=== PATIENT | female | born 1975 | race Caucasian/White ===

== ENCOUNTER 2018-06-09 05:19 | Day surgery (SDC) | payer OTHER, SELFPAY ==
[2018-06-09] VITALS (9 sets, daily range): BP systolic 91–124; BP diastolic 61–74; PULSE 61–68; RESP 14–16; TEMP 35.8–37.1; O2SAT 94–100; BMI 36.3
[2018-06-09 05:45] LABS: Internal QC Validated? YES +Cl - CLEAR BKGD; Pregnancy, Urine Negative Negative
--- NOTE | 2018-06-09 08:15 | HYST_PTH ---
PATIENT: VINOD PINK [place] [facility] [id number] AGE/SX: 42/F ROOM: RE06/09/[address]: Dr. Cherelle Mcfarland MD : 1975 BED: DIS: 06/09/2018 SPEC #: [id number] RECD: 06/09/18 10:51 STATUS: SAUL MERCER #: [id number] EDU: 06/09/18 08:[address]: Cherelle Mcfarland DEPT: SURGICAL PATHOLOGY RECD BY: Rony Gaines ENTERED: 06/09/18 12:09 SP TYPE: HYSTERECT OTHR DR: Dr. Ravi Mcclellan MD Tissues: Uterus, NOS Procedures: Surgery Specimen Level V HEADER OPERATION: Hysterectomy, laparoscopic total, salpingectomy, cystoscopy PRE-OP DIAGNOSIS: Menorrhagia, uterine fibroids, chronic pelvic pain TISSUE SUBMITTED: Uterus, bilateral fallopian tubes MICROSCOPIC DIAGNOSIS Uterus, bilateral fallopian tubes, hysterectomy and bilateral salpingectomy: Cervix ? chronic cystic cervicitis. Endometrium ? weakly secretory endometrium. Endometrial polyp ? benign endometrial polyp with secretory changes. Myometrium ? intramural leiomyoma (7 cm in greatest dimension). Bilateral fallopian tubes - no pathologic diagnosis. SJ:glenn 06/10/18 MICROSCOPIC DESCRIPTION Slides are reviewed. GROSS DESCRIPTION Received in fixative is one container labeled with the patient's name and designated uterus, bilateral fallopian tubes. The specimen consists of a hysterectomy specimen consisting of uterus with cervix and detached bilateral fallopian tubes. The uterus with cervix weighs 222 gm and measures 12 x 8 x 7.5 cm. The serosal surface is godinez, glistening. A Filshie clip is noted at the right cornu which appears intact. A second Filshie clip is also present in the container which appears intact. The ectocervical mucosa is unremarkable. The external os is slit-like in contour. The endocervical canal measures 3.5 cm in length and the endocervical mucosa is unremarkable. Sections of the cervix reveal a few cysts filled with mucoid material. The endometrial cavity is compressed to one side and measures 4 cm in length and up to 3.5 cm in width. An endometrial polyp is noted at the right cornu measuring 1.5 x 0.5 x 0.2 cm. The myometrial wall underneath the polyp is not indurated. The rest of the endometrium is godinez, smooth and glistening without any additional mass lesion and measures 0.1 cm in thickness. Sections of the uterine wall reveal a large nodular mass at the fundus measuring 7 cm in greatest dimension. The uninvolved uterine wall measures up to 1 cm in thickness. Sections of this mass reveals godinez whorled cut surfaces without areas of hemorrhage, necrosis or cystic degeneration. The fallopian tubes are not identified as right or left. One of the fallopian tubes measure 6 cm in length and up to 0.5 cm in diameter. The fimbrial end is identified. The second fallopian tube measures 4.5 cm in length and 0.5 cm in diameter. The fimbrial end is identified. Sections reveal unremarkable cut surfaces. Csr sections are submitted in 11 cassettes as follows: 1 - anterior cervix, 2 - posterior cervix, 3 & 4 - anterior uterine wall, 5 & 6 - posterior uterine wall, 7 ? endometrial polyp with underlying uterine wall, entirely submitted, 8 & 9 ? nodular mass, 10 & 11 ? bilateral fallopian tubes with each cassette containing one fallopian tube. / RODRIGUE:glenn 06/09/18 TC:1 CPT: 12368
[2018-06-09] MEDS: Lubricating Jelly 60 GM Tube 30 GM TOPICAL (08:24)
[2018-06-09] MEDS: Bupivacaine Mpf 0.5% 30 ML VIAL OPERA.SITE (08:29)
--- NOTE | 2018-06-09 09:53 | OP.PCM_ITS ---
Report of Operation Date of Procedure: 06/09/18 Pre-Operative Diagnosis: menorrhagia, uterine fibroids, chronic pelvic pain Post-Operative Diagnosis: same Surgery/Procedure Performed:: TLH, bilateral salpingectomy and cystoscopy Description of Surgical Findings:: enlarged uterus w/ fibroid, absent left ovary, both Fallopian tubes with evidence of tubal, otherwise normal pelvis, normal liver, bladder grossly normal electronic assembler: Emily Nicole Type of Anesthesia:: General Anesthesiologist: Yarely Iraheta Special Medications: none Specimen's removed: uterus, bilateral tubes Drains: lindsay Estimated Blood Loss (mL): 150cc Fluids Replaced: 1200ccLR Description of Procedure: The patient was taken to the operating room where she was prepped and draped in the dorsal lithotomy position. Her arms were tucked to the side and padded and her legs were placed in the yellowfin stirrups. Care was taken to ensure that she was placed in a neurologically safe and neutral position. A weighted speculum was placed in the vagina and the anterior lip of the cervix was grasped with a single-tooth tenaculum. The cervix sounded to 9 centimeters. 2- 0 Vicryl sutures were secured to the cervix at 3 and 9:00. The medium V CARE placed into the cervix and the balloon inflated. The stay sutures were placed through the cup and secured down to the cervix. Once the V-Care was secured to the cervix the Lindsay catheter was placed to straight drain. Attention was turned to the abdominal portion of the case. Before skin incisions were made they were infiltrated with 0.5% Marcaine solution for local anesthetic. A 5 mm intraumbilical incision was made and while tenting the anterior abdominal wall up with towel clamps a 5 mm blade less trocar and sleeve were advanced directly into the peritoneal cavity. Peritoneal placement was confirmed with the laparoscope the pneumoperitoneum was created, and the underlying abdominal contents were intact. The patient was placed in Trendelenburg and the above findings were noted. Right and left lateral 5 mm trochars were placed under direct visualization without difficulty. The antimesenteric portion of the tube was clamped sealed and transected serially on both sides with the LigaSure device. The round ligaments were clamped sealed and transected and a window was made in the peritoneum. The utero-ovarian ligament on the left was clamped, sealed, and transected with the LigaSure device and was hemostatic. There was no ovary on the left side. The bladder flap was dissected down with the LigaSure device and blunt dissection and the uterine arteries were then skeletonized. The uterine arteries were clamped sealed and transected on both sides with the LigaSure device. Along the cardinal ligament the uterine arteries adjacent to the cervix were clamped sealed and transected with the LigaSure device to move them away from the vaginal cuff angle. At this point the pedicles were all examined and found to be hemostatic. The bladder flap was rechecked and found to be adequately down. The monopolar tip of the LigaSure device was then used to enter the anterior vagina. The vaginal manipulator cup was noted in the vaginal colpotomy incision was made circumferentially around the cup. When the 3 and 9:00 positions of the cervicovaginal junction were reached these were clamped sealed and transected with the LigaSure device to secure any small remaining vessels. At this point the pedicles were hemostatic from above and attention was turned to the vaginal portion of the case again. The uterus was brought intact out through the vaginal colpotomy incision along with the tubes There is some bleeding from the left vaginal cuff angle and this was grasped with an Allis clamp. Vaginal angle sutures were placed on both sides with 0 Vicryl sutures and care was taken to ensure that the uterosacral ligament was secured into this stitch. The remainder the vagina was then closed horizontally with interrupted 0 Vicryl sutures. The cuff was hemostatic vaginally. The Lindsay catheter was removed and a cystoscopy was performed. The bladder appeared normal and was intact. Both ureteral orifices were noted and both ureteral jets were seen. The cystoscope was removed and the Lindsay catheter was placed back to straight drain. A sponge stick was placed in the vagina to help place traction against the vaginal cuff and the pneumoperitoneum was re-created. The suction chief operator lock tender was used to remove any blood and clots from the peritoneal cavity. The pedicles were reexamined and found to be hemostatic. The vaginal cuff was hemostatic. Some Jaxon was placed over the cuff and the pedicles and no active bleeding was noted through the Jaxon. The right and left lateral ports were taken out and the sites were hemostatic. The pneumoperitoneum was released and even under low pressure there was no bleeding of any of the pedicles are vaginal cuff. The umbilical port was removed. The umbilical skin incisions were closed with Monocryl suture and skin glue by Dr. Chang. The vaginal instruments were removed by me and a vaginal sweep was completed by me. The surgery was performed by me with assistance other than the portions dictated as above. There were no qualified residents available for this procedure. All sponge lap and needle counts were correct and the patient was transferred to the recovery room in stable condition. Grafts/Implants Used: none - Complications none - Admit VTE Documentation VTE Present on Admission: No VTE Mechan Device Prophylaxis: SCD's VTE Pharm Prophylaxis ordered?: Yes
--- NOTE | 2018-06-09 10:46 | DCINST_ITS ---
Discharge Diet: No Restrictions Discharge Activity: Return to Normal Activity, May Not Drive - while taking narcotic pain medications., May Shower, May Take a Tub Bath - 4-6 weeks May shower in (days): 1 May resume sexual activity in: 8 weeks Call your doctor if your incision/area has: Continuous Slow Oozing, Sudden Increased Bleeding, Increased Pain/ Swelling, Increased Redness, Foul Smelling Discharge Call your doctor if you observe: Fever of 101 or Higher, Inability to urinate, Inability to have a bowel movement, Using more than one pad per hour Cleanse incision/area with: Soap & Water, - - Your incisions have skin glue, leave it on until it falls off, it can get wet Allergies/Adverse Reactions: Allergies amoxicillin Allergy (Verified 06/08/18 10:10) Rash azithromycin [From Zithromax] Allergy (Verified 06/08/18 10:10) Swelling ciprofloxacin [From Cipro] Allergy (Verified 06/08/18 10:10) Rash nitrofurantoin [From Macrobid] Allergy (Verified 06/08/18 10:10) Shortness of breath Penicillins Allergy (Verified 06/08/18 10:10) Rash Sulfa (Sulfonamide Antibiotics) Allergy (Verified 06/02/18 15:04) Anaphylaxis erythromycin base [From Erythrocin] Adverse Reaction (Verified 06/08/18 10:10) Nausea/Vom/Diarrhea Medications to take at Discharge Albuterol Inhaler [Ventolin Hfa] 1 - 2 puff INHALATION Q6H PRN PRN 06/02/18 Fluoxetine [Prozac] 10 mg PO DAILY 06/02/18 Levothyroxine Sodium [Synthroid] 88 mcg PO DAILY 06/02/18 Topiramate [Topamax] 100 mg PO DAILY 06/02/18 Ibuprofen [Motrin] 800 mg PO TID PRN PRN #60 tab 06/09/18 Oxycodone HCl/Acetaminophen [Percocet 5/325] 1 - 2 tablet PO Q8 PRN 7 Days #26 tablet 06/09/18 Polyethylene Glycol 3350 [Miralax] 17 gm PO DAILY #1 bottle 06/09/18 The following prescriptions were given: Ibuprofen [Motrin] 800 mg PO TID PRN PRN #60 tab PRN Reason: Pain Oxycodone HCl/Acetaminophen [Percocet 5/325] 1 - 2 tablet PO Q8 PRN 7 Days #26 tablet PRN Reason: Pain Polyethylene Glycol 3350 [Miralax] 17 gm PO DAILY #1 bottle Primary Care Physician: Ravi Mcclellan [Primary Care Provider] - Test Results: Test results from this visit will be discussed in further detail at your follow- up appointment, if applicable.
[2018-06-09] MEDS: Lactated Ringers 1,000 ML 100 ML IV (12:29)
[2018-06-09] MEDS: oxyCODONE 5 MG Tablet PO (13:12)
--- NOTE | 2018-06-09 13:39 | SUR.PHASEII ---
1300 PATIENT AWAKE AND TAKING PO FLUIDS. NOEL DC'D AND EMPTIED OF 250 CC CLEAR YELLOW URINE. PATIENT TOLERATED WELL. WITHIN 10 MINUTES PATIENT UP TO BATHROOM AND VOIDED 150 CC BLOOD TINGED URINE. STATES SHE IS DOING WELL. AMBULATED WITH EASE WITH MINIMAL ASSIST.
[2018-06-09 13:59] LABS: Hematocrit 38.1 % (37-47); Hemoglobin 12.1 g/dl (12.0-15.0); Mean Corp Hgb Conc 31.8 g/gl (32-36); Mean Corpuscular Hgb 28.1 pg (27.0-32.0); Mean Corpuscular Volume 88.6 fL (81-99); Mean Platelet Vol. 10.2 fl (6.2-12.0); Platelet Count 219 K/mm3 (150-450); RBC Distribution Width CV 13.6 % (11.6-14.6); RBC Distribution Width SD 43.7 fl (35.1-43.9); Scan Indicated on CBC? Y/N NO; White Blood Count 9.5 K/mm3 (4.4-11.0)
--- NOTE | 2018-06-09 15:45 | PCM.PN.OB ---
Subjective: Pain well controlled, bill. po fluids well. Voided. No N/V. Desires d/c home - Physical Exam General: Alert, Cooperative, No apparent distress Abdomen: Soft, Non-Distended, Tender - appropriately, - - incisions clean, dry and intact Vital Signs Temp Pulse Resp BP Pulse Ox 98.4 F 68 16 120/68 100 06/09/18 14:15 06/09/18 14:15 06/09/18 14:15 06/09/18 14:15 06/09/18 14:15 Oxygen Flow Rate (L/min) 2 Oxygen Delivery Method Room Air Weight: 100.6 kg Body Mass Index (BMI) 36.3 Intake and Output for Last 24 Hours 06/07/18 06/08/18 06/09/18 23:59 23:59 23:59 Intake Total 1500 / 1500 Output Total 140 / 140 Balance 1360 / 1360 Laboratory Tests Past 24 Hrs 06/09/18 06/09/18 06/09/18 05:30 06:46 13:50 WBC 9.5 RBC 4.30 Hgb 12.1 Hct 38.1 MCV 88.6 MCH 28.1 MCHC 31.8 L RDW 13.6 RDW Differential 43.7 Plt Count 219 MPV 10.2 TSH 3.30 Urine Test Negative Medical Necessity - Tobacco Use Smoking Status: Never smoker Assessment/Plan POD#0 doing well desires d/c home CBC stable has home rxs. Comfortable w/ d/c instructions
== END 2018-06-09 14:32 | disposition home or self-care (01) ==
LOC: SDC 05:20 → AC 05:23
PROVIDERS: Family Provider Internal Medicine Infectious Disease; PCP Internal Medicine Infectious Disease; Visit Provider Obstetrics & Gynecology
PROC: 0UT94ZZ Resection of Uterus, Percutaneous Endoscopic Approach (ICD-10-PCS; CPT 58571; principal; 2018-06-09 07:55)
DX: D25.1 Intramural leiomyoma of uterus (principal); N72 Inflammatory disease of cervix uteri; N84.0 Polyp of corpus uteri; N92.0 Excessive and frequent menstruation with regular cycle; R10.2 Pelvic and perineal pain; G89.29 Other chronic pain; K21.9 Gastro-esophageal reflux disease without esophagitis; Z85.51 Personal history of malignant neoplasm of bladder; J45.909 Unspecified asthma, uncomplicated
CPT/HCPCS: 58571; 36415; 81025; 84443; 85027; 88307; J7120; J2405

== ENCOUNTER → 2019-08-22 06:10 | Outpatient (CLI) | payer OTHER, SELFPAY ==
--- NOTE | 2019-08-22 06:14 | ECHOCS_ITS ---
Reason For Study: CHEST PAIN Procedure This was a 2D Doppler, Color Flow transthoracic echocardiogram. The study was technically difficult. Contrast injection was performed. Exam performed in department. Left Ventricle Normal LV size. 2D echocardiographic images appearing compatible with a calcified left ventricular apical false tendon. Left ventricular systolic function is normal. The estimated ejection fraction is 60 %. No evidence for diastolic dysfunction. No regional wall motion abnormalities noted. Right Ventricle Normal RV size. Normal systolic function. Atria Normal left atrium. Normal right atrium. No doppler evidence for ASD. Mitral Valve There is no mitral annular calcification. Mild focal mitral valve calcification of the anterior leaflet. Trivial mitral valve insufficiency. Tricuspid Valve Normal tricuspid valve. Trivial tricuspid valve insufficiency. Unable to estimate RV systolic pressure/pulmonary artery pressure due to technically difficult study. Aortic Valve Trisinus/trileaflet aortic valve. Normal aortic valve. Pulmonic Valve The pulmonic valve is not well visualized. Great Vessels Normal sized aortic root. Pericardium/Pleural No pericardial effusion. Medication Diluted definity 2.5ml given slow IV push to enhance endocardial definition. MMode/2D Measurements & Calculations LVIDd: 4.5 cm IVSd: 0.84 cm Ao root diam: 3.1 cm LVIDs: 3.0 cm LVPWd: 0.86 cm RVDd: 2.5 cm FS: 33.8 % LAV(MOD-bp): 45.7 ml EDV(MOD-sp4): 100.9 ml EDV(MOD-sp2): 89.1 ml LAV(MOD-bp) Indexed: 22.2 ml/m2 ESV(MOD-sp4): 43.5 ml EF(MOD-sp2): 54.4 % LAV(MOD-sp2): 40.4 ml EF(MOD-sp4): 56.9 % LAV(MOD-sp4): 40.7 ml SV(MOD-sp4): 57.4 ml SV(MOD-sp2): 48.5 ml LA A4 area: 16.4 cm2 LA dimension(2D): 3.2 cm RA A4 area: 10.8 cm2 Time Measurements MV dec time: 0.22 sec Doppler Measurements & Calculations MV E max kingsley: 81.3 cm/sec Lat Peak E' Kingsley: 12.8 cm/sec Med Peak E' Kingsley: 6.3 cm/sec MV A max kingsley: 62.2 cm/sec E/E' lat: 6.4 E/E' med: 13.0 MV E/A: 1.3 Ao V2 max: 120.9 cm/sec LV V1 max: 94.5 cm/sec PA V2 max: 89.2 cm/sec Ao max P.8 mmHg LV V1 max P.6 mmHg Interpretation Summary The study was technically difficult. Contrast injection was performed. Left ventricular systolic function is normal. The estimated ejection fraction is 60 %. 2D echocardiographic images appearing compatible with a calcified left ventricular apical false tendon. Mild focal mitral valve calcification of the anterior leaflet. Trivial mitral valve insufficiency. Trivial tricuspid valve insufficiency. Unable to estimate RV systolic pressure/pulmonary artery pressure due to technically difficult study. No evidence for diastolic dysfunction. Ordering Physician: SHANTANU MEYERS Referring Physician: MARY KAISER Performed By: Stacy Villavicencio, CALOS, RVT
--- NOTE | 2019-08-22 13:34 | STRESSREP ---
Stress Test Report Date: 08-22-19 Procedure: Exercise tolerance test/imaging study Indications: Chest pain Consent: Per the patient Procedure: The patient exercised on a Carlos Enrique protocol for 6 minutes completing Stage II achieving a peak heart rate of 162 bpm (93 % predicted maximal heart rate) with a peak blood pressure 146/80 mmHg and a peak MET capacity of 7 METs. The baseline ECG demonstrated normal sinus rhythm. The peak exercise ECG demonstrated no obvious ECG changes. There were no cardiac dysrhythmias pretest, during exercise, or recovery. The functional capacity was considered average. There was no complaint of chest discomfort during exercise or recovery. The examination was discontinued secondary to dyspnea. Impression: 1. Technically adequate (percent predicted maximal heart rate greater than 85%) exercise tolerance test 2. Peak exercise ECG with no obvious ECG changes 3. There were no cardiac dysrhythmias pretest, during exercise, or recovery 4. Nuclear images pending Myocardial perfusion imaging study: Technique: The patient was injected with 14.7 mCi of technetium 99m Cardiolite and subsequently rest SPECT Cardiolite nuclear imaging was obtained in the horizontal long, vertical long, and short axis views. The patient exercised on a Carlos Enrique protocol for 6 minutes completing Stage II achieving a peak heart rate of 162 bpm (93 % predicted maximal heart rate) with a peak blood pressure 146/80 mmHg and a peak MET capacity of 7 METs. The patient was injected with 45.0 mCi of technetium 99m Cardiolite and subsequently stress SPECT Cardiolite nuclear imaging was obtained in the horizontal long, vertical long, and short axis views. A gated Cardiolite study at peak stress was obtained. Interpretation: Rest and stress SPECT Cardiolite nuclear imaging status post realignment, normalization, and attenuation correction, demonstrates at rest of a small area of subtle diminished tracer uptake in the mid to distal anterior/anterior apical segments which appears to improve/normalize following stress. There is end systolic thickening and brightening. The gated Cardiolite study demonstrates myocardial thickening and inward wall motion. The reported LVEF is 69 %. Impression: 1. Rest and stress SPECT Cardiolite nuclear imaging demonstrate the appearance of a small area of subtle diminished tracer uptake in the mid to distal anterior/anterior apical segments at rest which appears to improve/normalize following stress appearing compatible shifting soft tissue attenuation/artifact with no nocardial perfusion changes considered diagnostic for associated stress-induced myocardial ischemia. 2. The gated Cardiolite study reports an LVEF of 69 %. This note was generated with WebActionation software. It may contain incorrect words, spelling, and punctuation that were not noted in checking the note before signing.
== END ==
PROVIDERS: Family Provider Internal Medicine Infectious Disease; PCP Internal Medicine Infectious Disease
DX: R07.89 Other chest pain (principal)
CPT/HCPCS: 78452; 93017; 93306; A9500; Q9957; A4216; C8929